=== PATIENT | female | born 1950 | race Asian ===

== ENCOUNTER 2022-09-07 04:40 | Emergency (ER) | payer OTHER ==
[~2022-09-07] VITALS: Ht 154.9 cm; Wt 70.3 kg
[2022-09-07 04:45] VITALS: BP 133/60
--- NOTE | 2022-09-07 04:45 | NUR ---
[id number] FROM HD C/O BODY CRAMPS ON GARRETT ARMS AND GARRETT LEGS. PATIENT IS AOX4. ABLE TO MAKE NEEDS KNOWN. CLAIMED THAT THE CRAMPING STARTED AT 10PM. WENT TO HAVE HD TODAY BUT STAFF ADVISED HER TO GO TO ER TO HAVE A CHECK UP. PATIENT USES WALKER AT HOME. PLACED COMFORTABLY IN BED. VITALS CHECKED.
--- NOTE | 2022-09-07 04:45 | NUR ---
WITH LEFT AV FISTULA FOR HD. SCHED IS M-[id number]
--- NOTE | 2022-09-07 05:03 | NUR ---
SEEN BY MD AT BEDSIDE
[2022-09-07 05:34] LABS: BASOPHILS # (AUTO) 0.1 K/uL (0.0-0.2); EOSINOPHILS % (AUTO) 2.9 % (0.0-6.0); HEMATOCRIT 31 % (33-45); HEMOGLOBIN 9.9 g/dL (11.5-14.8); LYMPHOCYTES # (AUTO) 1.3 K/uL (0.8-4.8); LYMPHOCYTES % (AUTO) 18.2 % (20.0-44.0); MEAN CORPUSCULAR HGB CONC 32 g/dl (31.0-36.0); MEAN CORPUSCULAR VOLUME 94 fL (82-100); MONOCYTES # (AUTO) 0.7 K/uL (0.1-1.30); MONOCYTES % (AUTO) 9.8 % (2.0-12.0); NEUTROPHILS # (AUTO) 4.9 K/uL (1.8-8.9); NEUTROPHILS % (AUTO) 68.1 % (43.0-81.0); PLATELET COUNT (AUTO) 139 K/uL (150-450); WHITE BLOOD COUNT (AUTO) 7.2 K/uL (4.3-11.0)
[2022-09-07 05:44] LABS: CALCIUM, SERUM 9.6 mg/dL (8.5-10.1); CREATININE 8.4 mg/dL (0.6-1.3); POTASSIUM 4.8 mmol/L (3.5-5.1)
[2022-09-07 05:49] LABS: ALBUMIN 3.4 g/dL (3.4-5.0); BILIRUBIN,DIRECT 0.2 mg/dL (0.0-0.2); BILIRUBIN,TOTAL 0.6 mg/dL (0.2-1.0); TOTAL PROTEIN, SERUM 6.7 g/dL (6.4-8.2)
--- NOTE | 2022-09-07 06:00 | NUR ---
Patient discharged to home in stable condition. Written and verbal after care instructions given. Patient verbalizes understanding of instruction. DTR COMING TO RADIO TESTER
== END 2022-09-07 06:32 | disposition home or self-care (01) ==
LOC: ER 04:42
DX: M79.602 Pain in left arm (principal); M79.601 Pain in right arm; I10 Essential (primary) hypertension; E11.9 Type 2 diabetes mellitus without complications; Z60.2 Problems related to living alone; Z88.2 Allergy status to sulfonamides; Z88.1 Allergy status to other antibiotic agents; Z88.8 Allergy status to other drugs, medicaments and biological substances
CPT/HCPCS: 36415; 71045-TC; 80048-TC; 80076-TC; 85025-TC

== ENCOUNTER 2024-05-24 07:57 | Emergency (ER) | payer OTHER ==
[~2024-05-24] VITALS: Ht 170.2 cm; Wt 80.7 kg
[2024-05-24] MEDS: IV NS 0.9% 500 ML BAG IV ONE (09:00)
[2024-05-24 09:02] LABS: BASOPHILS % (AUTO) 0.1 % (0.0-2.0); EOSINOPHILS % (AUTO) 0.1 % (0.0-6.0); HEMATOCRIT 28 % (33-45); HEMOGLOBIN 9.3 g/dL (11.5-14.8); LYMPHOCYTES # (AUTO) 0.8 K/uL (0.8-4.8); LYMPHOCYTES % (AUTO) 2.7 % (20.0-44.0); MEAN CORPUSCULAR HEMOGLOBIN 31 PG (26.0-33.0); MEAN CORPUSCULAR HGB CONC 33 g/dl (31.0-36.0); MEAN CORPUSCULAR VOLUME 95 fL (82-100); MONOCYTES % (AUTO) 3.6 % (2.0-12.0); NEUTROPHILS # (AUTO) 26.1 K/uL (1.8-8.9); NEUTROPHILS % (AUTO) 93.5 % (43.0-81.0); PLATELET COUNT (AUTO) 229 K/uL (150-450); RED BLOOD CELL COUNT(AUTO) 2.98 MIL/uL (4.0-5.2); RED CELL DISTRIBUTION WIDTH 15.7 % (11.5-15.0); WHITE BLOOD COUNT (AUTO) 27.9 K/uL (4.3-11.0)
[2024-05-24 09:10] LABS: CARBON DIOXIDE 31 mmol/L (21-32); CHLORIDE 99 mmol/L (98-107); GLUCOSE 172 mg/dL (74-106); POTASSIUM 4.1 mmol/L (3.5-5.1); SODIUM SERUM 137 mmol/L (136-145); UREA NITROGEN, BLOOD 31 mg/dL (7-18)
[2024-05-24 09:13] LABS: INR 1.18 (0.91-1.10); PARTIAL THROMBOPLASTIN TIME 31.9 SEC (24.3-34.3); PROTHROMBIN TIME 12.4 SECS (9.2-11.1)
[2024-05-24] MEDS: CEFEPIME 2 GM in IV D5W 50 ML IV ONE (09:15)
[2024-05-24 09:23] LABS: LACTIC ACID 1.9 mmol/L (0.4-2.0)
[2024-05-24 09:32] LABS: EOSINOPHILS % (MANUAL) 1 % (0-4); LYMPHOCYTES % (MANUAL) 6 % (16-48); MONOCYTES % (MANUAL) 5 % (0-11.0); NEUTROPHILS % (MANUAL) 88 (42-76); PLATELET ESTIMATE ADEQUATE
[2024-05-24 09:34] LABS: SERUM AMMONIA 11 umol/L (11-32)
[2024-05-24 09:37] LABS: ALANINE AMINOTRANSFERASE 23 U/L (12-78); ALBUMIN 3.4 g/dL (3.4-5.0); ALKALINE PHOSPHATASE 142 U/L (46-116); ASPARTATE AMINOTRANSFERASE 17 U/L (15-37); BILIRUBIN,DIRECT 0.3 mg/dL (0.0-0.2); BILIRUBIN,TOTAL 0.8 mg/dL (0.2-1.0)
[2024-05-24 09:38] LABS: ALCOHOL, BLOOD < 3 mg/dL (0-10); TOTAL PROTEIN, SERUM 7.2 g/dL (6.4-8.2)
[2024-05-24] MEDS: VANCOMYCIN 1 GM in IV D5W 250 ML IV ONE (09:58)
[2024-05-24] MEDS: ACETAMINOPHEN 650 MG/SUPP.RECT RC ONE (10:00)
[2024-05-24] MEDS ORDERED: ACETAMINOPHEN 325 MG TABLET ONE ×2 (10:12→15:01)
[2024-05-24] MEDS: ACETAMINOPHEN ES 500 MG TABLET PO ONE (10:25)
[2024-05-24] MEDS ORDERED: ISOS60TA72 PO (10:52)
[2024-05-24] MEDS ORDERED: ALBU2.5V38 IH (10:52)
[2024-05-24] MEDS ORDERED: CLON0.1T PO (10:52)
[2024-05-24] MEDS ORDERED: INSU100I14 SQ (10:52)
[2024-05-24] MEDS ORDERED: SEVE800T8 PO (10:52)
[2024-05-24] MEDS ORDERED: INSULIN GLARGINE-YF SQ (10:52)
[2024-05-24] MEDS ORDERED: ALLO100T PO (10:52)
[2024-05-24] MEDS ORDERED: TACR100O TP (10:52)
[2024-05-24] MEDS ORDERED: DOCU100T2 PO (10:52)
[2024-05-24] MEDS ORDERED: NITR0.4T48 SL (10:52)
[2024-05-24] MEDS ORDERED: GABA100C PO ×2 (10:52)
[2024-05-24] MEDS ORDERED: CYAN100T9 PO (10:52)
[2024-05-24] MEDS ORDERED: CYCL30DR XX (10:52)
[2024-05-24] MEDS ORDERED: ESOM40CA52 PO (10:52)
[2024-05-24] MEDS ORDERED: FLUT1BLS13 IH (11:16)
[2024-05-24] MEDS ORDERED: BISO5TAB20 PO (11:16)
[2024-05-24] MEDS ORDERED: FLUT16SP16 BNOSTRILS (11:16)
[2024-05-24] MEDS ORDERED: EVOL140P3 SQ (11:16)
[2024-05-24] MEDS ORDERED: BIOT10004 PO (11:16)
[2024-05-24] MEDS ORDERED: ASPI-1169 PO (11:16)
[2024-05-24] MEDS ORDERED: APIX5TAB PO (11:16)
[2024-05-24] MEDS ORDERED: KETOROLAC TROMETHAMINE 15 MG/ML VIAL ONE (14:23)
[2024-05-24] MEDS: KETOROLAC TROMETHAMINE 15 MG/ML VIAL IV ONE (14:27)
[2024-05-24] MEDS: ACETAMINOPHEN 325 MG TABLET PO ONE (15:13)
[2024-05-24 18:30] VITALS: BP 145/60; TEMP 99; O2SAT 94
== END 2024-05-24 18:59 | disposition short-term general hospital (02) ==
LOC: ER 08:24
DX: A41.89 Other specified sepsis (principal); R41.82 Altered mental status, unspecified; R79.89 Other specified abnormal findings of blood chemistry; E11.22 Type 2 diabetes mellitus with diabetic chronic kidney disease; I12.0 Hypertensive chronic kidney disease with stage 5 chronic kidney disease or end stage renal disease; I25.10 Atherosclerotic heart disease of native coronary artery without angina pectoris; N18.6 End stage renal disease; Z79.01 Long term (current) use of anticoagulants; Z79.4 Long term (current) use of insulin; Z79.51 Long term (current) use of inhaled steroids; Z79.621 Long term (current) use of calcineurin inhibitor; Z79.82 Long term (current) use of aspirin; Z79.899 Other long term (current) drug therapy; Z88.1 Allergy status to other antibiotic agents; Z88.2 Allergy status to sulfonamides; Z88.6 Allergy status to analgesic agent; Z88.8 Allergy status to other drugs, medicaments and biological substances; Z90.49 Acquired absence of other specified parts of digestive tract; Z60.2 Problems related to living alone; Z20.822 Contact with and (suspected) exposure to COVID-19
CPT/HCPCS: 99291; 96365; 96367; 93005; 87804 ×2; 71045; 71250; 70450; 74176; 82140; 85025; 80048; 87040 ×2; 83605; 80076; 85007; 36415; 84443; 84484 ×2; 85730; 82962 ×2; 87426; 80320; J3370; J7060; A4223; J0692; G0480; J1885

== ENCOUNTER 2025-04-02 12:00 | Emergency (ER) | payer OTHER ==
[~2025-04-02] VITALS: Ht 167.6 cm; Wt 70.3 kg
[~2025-04-02 12:00] MED LIST: ALBU2.5V38 IH; ALLO100T PO; APIX5TAB PO; ASPI-1169 PO; BIOT10004 PO; BISO5TAB20 PO; CLON0.1T PO; CYAN100T9 PO; CYCL30DR XX; DOCU100T2 PO; ESOM40CA52 PO; EVOL140P3 SQ; FLUT16SP16 BNOSTRILS; FLUT1BLS13 IH; GABA100C PO; INSU100I14 SQ; INSULIN GLARGINE-YF SQ; ISOS60TA72 PO; NITR0.4T48 SL; SEVE800T8 PO; TACR100O TP
[2025-04-02 12:24] LABS: PLATELET COUNT (AUTO) 99 K/uL (150-450); RED BLOOD CELL COUNT(AUTO) 3.51 MIL/uL (4.0-5.2); RED CELL DISTRIBUTION WIDTH 17.2 % (11.5-15.0); WHITE BLOOD COUNT (AUTO) 5.6 K/uL (4.3-11.0)
[2025-04-02 12:41] LABS: INR 1.12 (0.91-1.10)
[2025-04-02 12:43] LABS: ASPARTATE AMINOTRANSFERASE 18 U/L (15-37); CALCIUM, SERUM 8.7 mg/dL (8.5-10.1); CREATININE 4.1 mg/dL (0.6-1.3); SODIUM SERUM 141 mmol/L (136-145); TOTAL PROTEIN, SERUM 6.8 g/dL (6.4-8.2); UREA NITROGEN, BLOOD 11 mg/dL (7-18)
[2025-04-02] MEDS ORDERED: RIBO50TA PO (13:09)
[2025-04-02] MEDS ORDERED: CLOP75TA15 PO (13:09)
[2025-04-02] MEDS ORDERED: [UNRECOGNIZED DRUG - REMARK] SQ (13:09)
[2025-04-02] MEDS: PANTOPRAZOLE 80 MG in IV NS 0.9% 100 ML IV ONE (13:39)
[2025-04-02] MEDS: PANTOPRAZOLE 80 MG in IV NS 0.9% 500 ML IV ONE (13:52)
[2025-04-02] MEDS: CLINDAMYCIN 600 MG in IV D5W 100 ML IV ONE (13:58)
[2025-04-02 15:00] VITALS: BP 126/84; TEMP 98.3; O2SAT 98
== END 2025-04-02 16:50 | disposition short-term general hospital (02) ==
LOC: ER 12:05
DX: K92.2 Gastrointestinal hemorrhage, unspecified (principal); L03.90 Cellulitis, unspecified; I13.11 Hypertensive heart and chronic kidney disease without heart failure, with stage 5 chronic kidney disease, or end stage renal disease; E11.22 Type 2 diabetes mellitus with diabetic chronic kidney disease; E11.40 Type 2 diabetes mellitus with diabetic neuropathy, unspecified; I25.10 Atherosclerotic heart disease of native coronary artery without angina pectoris; N18.6 End stage renal disease; Z79.01 Long term (current) use of anticoagulants; Z79.02 Long term (current) use of antithrombotics/antiplatelets; Z79.4 Long term (current) use of insulin; Z79.51 Long term (current) use of inhaled steroids; Z79.621 Long term (current) use of calcineurin inhibitor; Z79.899 Other long term (current) drug therapy; Z88.1 Allergy status to other antibiotic agents; Z88.2 Allergy status to sulfonamides; Z88.6 Allergy status to analgesic agent; Z88.8 Allergy status to other drugs, medicaments and biological substances; Z95.0 Presence of cardiac pacemaker; Z95.5 Presence of coronary angioplasty implant and graft; Z99.2 Dependence on renal dialysis
CPT/HCPCS: 99285; 74176; 96365; 96368; 93005; 84145; 85025; 80048; 87040 ×2; 83605; 83690; 80076; 36415; 84484 ×2; 85730; 86850; J3490; J7060; J7030; J7040; J2470 ×2; A4223